=== PATIENT | female | born 2000 | race Caucasian/White ===

== ENCOUNTER 2024-04-17 09:59 | Emergency (ER) | payer SELFPAY ==
[2024-04-17] MEDS ORDERED: Sodium Chloride 0.9% 2.5 ML Syringe FLUSH PRN (10:40)
[2024-04-17] MEDS ORDERED: Sodium Chloride 0.9% 10 ML Syringe FLUSH PRN (10:40)
[2024-04-17 10:49] LABS: BASOPHILS ABSOLUTE AUTO 0.03 K/uL (0.00-0.20); BASOPHILS PERCENT AUTO 0.3 % (0.0-1.0); EOSINOPHILS ABSOLUTE AUTO 0.13 K/uL (0.00-0.45); EOSINOPHILS PERCENT AUTO 1.2 % (0.0-6.0); HEMATOCRIT 36.4 % (37.0-47.0); IMMATURE GRAN ABSOLUTE AUTO 0.04 K/uL (0.00-0.05); IMMATURE GRAN PERCENT AUTO 0.4 % (0.0-0.4); LYMPHOCYTES ABSOLUTE AUTO 1.87 K/uL (1.00-4.80); LYMPHOCYTES PERCENT AUTO 17.7 % (24.0-44.0); MONOCYTES ABSOLUTE AUTO 0.51 K/uL (0.00-0.80); MONOCYTES PERCENT AUTO 4.8 % (0.0-8.0); NEUTROPHILS ABSOLUTE AUTO 7.97 K/uL (1.80-7.70); NEUTROPHILS PERCENT AUTO 75.6 % (41.0-71.0); PLATELET COUNT,PLT 223 K/uL (150-400); RED BLOOD CELL COUNT 4.61 M/uL (4.10-5.30); WHITE BLOOD CELL COUNT,WBC 10.55 K/uL (3.9-11.3)
[2024-04-17] MEDS: Sodium Chloride 0.9% 1,000 ML IV STA ×2 (10:56→11:57)
[2024-04-17] MEDS: Ondansetron 4 MG/2 ML SDV IVPUSH STA (10:57)
[2024-04-17] MEDS: diphenhydrAMINE 50 MG/ML SDV IVPUSH STA (10:57)
[2024-04-17 11:27] LABS: TSH ULTRASENSITIVE 1.93 uIU/mL (0.36-3.74)
[2024-04-17 11:28] LABS: A/G RATIO 0.6 (0.9-1.6); ALBUMIN 2.8 g/dL (3.4-5.0); BILIRUBIN TOTAL 0.2 mg/dL (0.2-1.0); CALCIUM 9.4 mg/dL (8.5-10.1); CARBON DIOXIDE,CO2 24.8 mmol/L (21.0-32.0); CREATININE 0.6 mg/dL (0.6-1.0); EST CRCL DRUG DOSING (CG) 131.22 mL/min; MAGNESIUM 1.5 mg/dL (1.8-2.4); PROTEIN TOTAL,TP 7.2 g/dL (6.4-8.2)
[2024-04-17] MEDS: Magnesium Sulf/Wat 2 GM/50 mL 2 GM in Premix Bag 1 BAG IV STA (11:57)
[2024-04-17] MEDS: Acetaminophen 500 MG Tab PO STA (13:10)
[2024-04-17 13:15] LABS: BILIRUBIN,URINE NEGATIVE (NEGATIVE); COLOR,URINE YELLOW; GLUCOSE,URINE NEGATIVE (NEGATIVE); KETONES,URINE 15 mg/dL (NEGATIVE); LEUKOCYTE ESTERASE,URINE NEGATIVE (NEGATIVE); NITRITE,URINE NEGATIVE (NEGATIVE); OCCULT BLOOD,URINE TRACE-INTACT (NEGATIVE); PROTEIN,URINE NEGATIVE (NEGATIVE); UROBILINOGEN,URINE 0.2 EU/dL (<2.0)
[2024-04-17 13:19] LABS: APPEARANCE,URINE HAZY
[2024-04-17 13:23] LABS: BACTERIA,URINE FEW (NEGATIVE); EPITHELIAL CELLS,URINE FEW (NONE-FEW); RBC,URINE 0-1 (0-2/HPF); WBC,URINE 0-2 (0-5/HPF)
== END 2024-04-17 14:08 | disposition home or self-care (01) ==
LOC: MW.ED 09:59
DX: O99.891 Other specified diseases and conditions complicating pregnancy (principal); R42 Dizziness and giddiness; O99.352 Diseases of the nervous system complicating pregnancy, second trimester; H66.92 Otitis media, unspecified, left ear; O99.282 Endocrine, nutritional and metabolic diseases complicating pregnancy, second trimester; E83.42 Hypomagnesemia; Z3A.20 20 weeks gestation of pregnancy; Z75.8 Other problems related to medical facilities and other health care; Z79.899 Other long term (current) drug therapy
CPT/HCPCS: 36415; 80053; 81001; 83690; 83735; 84443; 85025; 87428; 93005; 96361; 96365; 96375; 99284; A9270; J1200; J2405; J3475; J7030

== ENCOUNTER 2024-08-26 05:04 | Inpatient (IN) | payer OTHER ==
[2024-08-26] MEDS ORDERED: Citric Acid/Sodium Citrate Solution 30 ML Cup PO ONE (05:13)
[2024-08-26] MEDS ORDERED: ceFAZolin 2 GM in Water For Injection, Sterile 20 ML IVPUSH ONE (05:13)
[2024-08-26] MEDS ORDERED: Sodium Chloride 0.9% 2.5 ML Syringe FLUSH PRN (05:13)
[2024-08-26] MEDS ORDERED: Sodium Chloride 0.9% 10 ML Syringe FLUSH PRN (05:13)
[2024-08-26] MEDS ORDERED: Oxytocin/0.9 % Sodium Chloride 30 UNIT/500 ML BAG IV SCH (05:15)
[2024-08-26] MEDS: Lactated Ringers 1,000 ML IV SCH ×2 (06:05→10:40)
[2024-08-26 06:31] LABS: MEAN PLATELET VOLUME 9.8 fL (9.4-12.3); NRBC ABSOLUTE 0.00 K/uL (0.00-0.02); NRBC PERCENT 0.0 /100WBC (0.0-0.2); PLATELET COUNT,PLT 188 K/uL (150-400); RED BLOOD CELL COUNT 4.16 M/uL (4.10-5.30); WHITE BLOOD CELL COUNT,WBC 8.10 K/uL (3.9-11.3)
[2024-08-26 06:48] LABS: BLOOD UREA NITROGEN,BUN 15.0 mg/dL (7.0-18.0); CARBON DIOXIDE,CO2 21.6 mmol/L (21.0-32.0); CHLORIDE,CL 102.0 mmol/L (98-107); CREATININE 0.8 mg/dL (0.6-1.0); EST CRCL DRUG DOSING (CG) 98.41 mL/min; ESTIMATED GFR 106.0 mL/min (>60); GLUCOSE RANDOM 94.0 mg/dL (74-106); POTASSIUM,K 3.8 mmol/L (3.5-5.1); SODIUM,NA 137.0 mmol/L (136-145)
[2024-08-26] MEDS ORDERED: Oxytocin 10 Units/1 ML SDV ONE (07:34)
[2024-08-26] MEDS ORDERED: Ropivacaine 0.5% 5 MG/ML 30 ML SDV ONE (07:34)
[2024-08-26] MEDS ORDERED: Ondansetron 4 MG/2 ML SDV ONE (07:34)
[2024-08-26] MEDS ORDERED: Ketorolac 30 MG/ML SDV ONE (07:34)
[2024-08-26] MEDS ORDERED: fentaNYL 100 MCG/2 ML SDV ONE (07:34)
[2024-08-26] MEDS ORDERED: Morphine PF 10 MG/10 ML SDV ONE (07:35)
[2024-08-26] MEDS ORDERED: Phenylephrine 1% 10 MG/ML SDV ONE (07:40)
[2024-08-26] MEDS ORDERED: Oxytocin 10 Units/1 ML SDV IM PRN (09:06)
[2024-08-26] MEDS ORDERED: Naloxone 0.4 MG/ML SDV IVPUSH PRN ×2 (09:06→09:23)
[2024-08-26 09:12] LABS: PH,UMBILICAL ARTERIAL 7.19 (7.18-7.38); PH,UMBILICAL VENOUS 7.29 (7.25-7.45)
[2024-08-26] MEDS ORDERED: Ondansetron 4 MG/2 ML SDV IVPUSH PRN ×2 (09:23)
[2024-08-26] MEDS ORDERED: Albuterol 0.083% 2.5 MG/3 ML Neb Soln NEB PRN (09:23)
[2024-08-26] MEDS ORDERED: diphenhydrAMINE 50 MG/ML SDV IVPUSH PRN (09:23)
[2024-08-26] MEDS ORDERED: fentaNYL 50 MCG/ML SDV IVPUSH PRN (09:23)
[2024-08-26] MEDS ORDERED: Acetaminophen/oxyCODONE 325-5 MG Tab PO PRN (09:23)
[2024-08-26] MEDS ORDERED: fentaNYL 100 MCG/2 ML SDV IVPUSH PRN (09:23)
[2024-08-26] MEDS ORDERED: Lactated Ringers 1,000 ML IV SCH (11:45)
[2024-08-26] MEDS: ePHEDrine 50 MG/ML SDV IM ONE (11:49)
[2024-08-26] MEDS: Ketorolac 30 MG/ML SDV IVPUSH SCH (16:53)
[2024-08-26] MEDS: Ondansetron 4 MG/2 ML SDV IVPUSH PRN (16:57)
[2024-08-26] MEDS: diphenhydrAMINE 50 MG/ML SDV IVPUSH PRN (18:00)
[2024-08-27] MEDS: Acetaminophen/oxyCODONE 325-5 MG Tab PO PRN ×2 (04:30→11:14)
[2024-08-27] MEDS: Lanolin 100% Cream 7 GM Tube TOP PRN (04:31)
[2024-08-27 05:45] LABS: MEAN PLATELET VOLUME 10.2 fL (9.4-12.3); NRBC ABSOLUTE 0.00 K/uL (0.00-0.02); NRBC PERCENT 0.0 /100WBC (0.0-0.2); PLATELET COUNT,PLT 160 K/uL (150-400); RED BLOOD CELL COUNT 3.14 M/uL (4.10-5.30); WHITE BLOOD CELL COUNT,WBC 9.52 K/uL (3.9-11.3)
[2024-08-27 06:03] LABS: BLOOD UREA NITROGEN,BUN 15.0 mg/dL (7.0-18.0); CARBON DIOXIDE,CO2 27.1 mmol/L (21.0-32.0); CHLORIDE,CL 101.0 mmol/L (98-107); CREATININE 0.9 mg/dL (0.6-1.0); EST CRCL DRUG DOSING (CG) 87.48 mL/min; GLUCOSE RANDOM 84.0 mg/dL (74-106); POTASSIUM,K 3.7 mmol/L (3.5-5.1); SODIUM,NA 135.0 mmol/L (136-145)
[2024-08-27 06:28] LABS: ESTIMATED GFR 92.0 mL/min (>60)
[2024-08-27] MEDS: Ketorolac 30 MG/ML SDV IVPUSH SCH (09:07)
[2024-08-27] MEDS: Nalbuphine 10 MG/1 ML Vial IVPUSH PRN (09:08)
[2024-08-27] MEDS: Calcium Gluconate 10% 1 GM/10 ML SDV IV SCH (11:12)
[2024-08-27] MEDS: Sodium Ferric Gluconate Cmplex 125 MG in Sodium Chloride 0.9% 100 ML IV SCH (11:16)
[2024-08-29 06:23] LABS: MEAN PLATELET VOLUME 9.5 fL (9.4-12.3); NRBC ABSOLUTE 0.03 K/uL (0.00-0.02); NRBC PERCENT 0.4 /100WBC (0.0-0.2); PLATELET COUNT,PLT 177 K/uL (150-400); RED BLOOD CELL COUNT 3.20 M/uL (4.10-5.30); WHITE BLOOD CELL COUNT,WBC 8.15 K/uL (3.9-11.3)
[2024-08-29] MEDS: diphenhydrAMINE 50 MG/ML SDV IVPUSH ONE (12:25)
== END 2024-08-29 20:15 | disposition home or self-care (01) | DRG 787 ==
LOC: MW.OB 05:04 → OBSVTOIN 05:05 → MW.OB 21:24
PROVIDERS: ADMIT Obstetrics & Gynecology; ATTEND Obstetrics & Gynecology
PROC: 4A1HXCZ Monitoring of Products of Conception, Cardiac Rate, External Approach (ICD-10-PCS; 2024-08-26)
PROC: 10D00Z1 Extraction of Products of Conception, Low, Open Approach (ICD-10-PCS; principal; 2024-08-26 08:00)
DX: O34.211 Maternal care for low transverse scar from previous cesarean delivery (principal); D62 Acute posthemorrhagic anemia; O32.1XX0 Maternal care for breech presentation, not applicable or unspecified; Z3A.38 38 weeks gestation of pregnancy; Z37.0 Single live birth; O24.420 Gestational diabetes mellitus in childbirth, diet controlled; O99.214 Obesity complicating childbirth; E66.01 Morbid (severe) obesity due to excess calories; O99.03 Anemia complicating the puerperium
CPT/HCPCS: 01961; 36415; 36430; 59025; 64488; 80048; 82803; 85027; 86592; 86850; 86900; 86901; 86920; A9270-GY; J0173; J0612; J0665; J0690; J1100; J1200; J1790; J1885; J2274; J2300; J2371; J2405; J2590; J2765; J2795; J2916; J3010; J3490; J7120; P9016